=== PATIENT | male | born 1995 | race Caucasian/White ===

== ENCOUNTER 2017-02-15 19:13 | Emergency (ER) | payer OTHER ==
[~2017-02-15] VITALS: Ht 185.4 cm; Wt 87.9 kg
[2017-02-15 19:18] VITALS: BP 113/70; PULSE 74; TEMP 37.2; O2SAT 96; Ht 185.4 cm; Wt 87.9 kg
[2017-02-15] MEDS ORDERED: PROPARACAINE HCL 0.5% OP SOLN 15 ML BTL OP STA (19:31)
--- NOTE | 2017-02-15 20:27 | EMERGENCY ROOM VISIT NOTE ---
ED Visit Note First contact with patient: 19:24 CHIEF COMPLAINT: Eye pain HISTORY OF PRESENT ILLNESS: This 21-year-old male patient presents to the emergency department ambulatory complaining of pain in the right eye which began when he woke up from a nap today. The patient believes he may have scratched his eye during his sleep. There has been a constant moderate pain and irritation, redness and tearing in the eye. There is a mild blurring of vision at times and light bothers the eye. The vision has not been decreased over all. The patient does not wear contacts. The patient rates the pain as stinging and 3/10. The patient has not had previous injuries to this eye. Tetanus shot is up to date. REVIEW OF SYSTEMS: A 6 system review of systems was completed with positives and pertinent negatives listed in the HPI. ALLERGIES: No known drug allergies MEDICATIONS: No chronic medications PMH: No significant past medical history. SOCIAL HISTORY: The patient is a [employer] student and lives with roommates. Nonsmoker, denies alcohol use. PHYSICAL EXAM: Vital Signs: Reviewed Nurse's notes, vital signs stable. Visual acuity 20/40 right eye, 20/25 left eye without correction. GENERAL: This is a 21-year-old male, in no acute distress, but who is uncomfortable from the eye problem. Well-developed well-nourished. EYES: The pupils are equal round and reactive to light and accommodation. EOMs are full and without tenderness. There is discharge of clear tears from the right eye which is injected. There is no foreign body visible under the eyelid even after lid eversion. Funduscopic exam reveals no hemorrhages, papilledema, or other abnormalities. No foreign body was seen embedded in the cornea under slit lamp exam. The cornea was clear and no hyphema was seen. Fluorescein uptake was observed with ultraviolet light significant for a small corneal abrasion at 12:00. EMERGENCY DEPARTMENT COURSE: I examined the patient. Alcaine 2 drops were placed in the patient's right eye. A slit lamp exam was performed as above. Ciloxan two drops was placed in the patient's right eye. The patient was discharged home in good condition. DIAGNOSIS: Corneal abrasion of the right eye Problem List Medical Problems: (1) H/O ACL reconstruction Status: Chronic Current/Historical Medications No Active Prescriptions or Reported Meds Allergies Coded Allergies: No Known Allergies (Unverified , 01/15/16) Vital Signs Date Time Temp Pulse Resp B/P Pulse Ox O2 Delivery O2 Flow Rate FiO2 02/15/17 19:18 37.2 74 16 113/70 96 Room Air Medications Administered Medications (Trade) Dose Ordered Sig/Coty Route Start Time Stop Time Status Last Admin Dose Admin Ciprofloxacin HCl (Ciprofloxacin 0.3% Op Soln) 2 drops Q4H ONCE OP 02/15/17 20:30 02/15/17 20:31 DC 02/15/17 20:47 2 DROPS Departure Information Dispostion Home / Self-Care Condition GOOD Prescriptions No Active Prescriptions or Reported Meds Referrals [facility] (PCP) Patient Instructions My [facility] Additional Instructions You have been treated in the Emergency Department today for your Corneal Abrasion. You have been prescribed Ciloxan eye drops. This is an antibiotic which will help to prevent an infection from developing in your affected eye. You should use 2 drops in the affected eye every 2 hours while awake for the first 2 days, then every 4 hours for the remaining 5 days. This is a total of a 7-day course for these antibiotic eye drops. For pain control, you can use the following askv-ity-pdpefot medicines (if >12 yo): - Regular strength (325mg/tab) Tylenol (acetaminophen) 2 tabs every 4-6 hours as needed. Do not exceed 12 tablets in a 24 hour period. Avoid taking more than 4 grams (4000 mg) of Tylenol per day. This includes any other sources of acetaminophen you may take on a regular basis. - Regular strength (200 mg/tab) Advil (ibuprofen) 1-2 tabs every 4-6 hours as needed. Do not exceed a dose of 3200 mg per day. You should relax in a quiet, dark place for the rest of the day. You should wear sunglasses while outside for the next few days until your eyes are not as sensitive to the light. You should schedule a follow-up appointment in 2-3 days with your Primary Care Provider or established Eye Doctor (Deputy Sheriff Lieutenant) for further evaluation and treatment of your Corneal Abrasion. Return to the Emergency Department if your current symptoms worsen despite treatment course outlined above, or if you develop any of the following symptoms : intractable pain, visual disturbances, loss of vision, increased redness, swelling, drainage, or if you develop a fever.
[2017-02-15] MEDS ORDERED: CIPROFLOXACIN HCL 0.3% OP SOLN 2.5 ML BTL OP ONE (20:30)
== END 2017-02-15 20:48 | disposition home or self-care (01) ==
LOC: C.EDB 19:14 → C.EDD 20:48
DX: S05.01XA Injury of conjunctiva and corneal abrasion without foreign body, right eye, initial encounter (principal); X58.XXXA Exposure to other specified factors, initial encounter

== ENCOUNTER 2017-03-12 14:22 | Emergency (ER) | payer OTHER ==
[~2017-03-12] VITALS: Ht 185.4 cm; Wt 84.4 kg
[2017-03-12 14:27] VITALS: BP 137/67; PULSE 78; TEMP 36.5; O2SAT 99; Ht 185.4 cm; Wt 84.4 kg
[2017-03-12] MEDS ORDERED: IBUPROFEN 600 MG TAB PO STA (14:46)
--- NOTE | 2017-03-12 15:15 | DIAGNOSTIC IMAGING REPORT ---
LEFT KNEE 3 VIEWS CLINICAL HISTORY: Left knee pain status post trauma COMPARISON: None. DISCUSSION: There are postsurgical changes of prior ACL repairs. No acute fractures are visualized. There is a small supra patellar joint effusion. IMPRESSION: 1. No acute fractures 2. Postsurgical changes 3. Small joint effusion Electronically signed by: Miguel Barillas M.D. 03/12/2017 3:13 PM Dictated Date/Time: 03/12/2017 3:12 PM
[2017-03-12] MEDS ORDERED: TRAM-10 PO (16:01)
--- NOTE | 2017-03-12 16:07 | EMERGENCY ROOM VISIT NOTE ---
History First contact with patient: 14:39 Chief Complaint: KNEEPAIN Stated Complaint: LEFT KNEE PAIN-CAN'T WALK History of Present Illness The patient is a 22 year old male who presents to the Emergency Room with complaints of a left knee injury while playing dodgeball last night. The patient does not know the exact mechanism of injury, but does report abrupt onset of left knee pain that has persisted. The patient now rates his discomfort a 7 out of 10 with weightbearing. He reports a prior history of anterior cruciate ligament injury 3 with his first 2 injuries requiring anterior cruciate ligament reconstruction. His last injury was a partial anterior cruciate ligament tear with nonsurgical management. The patient does have several anterior cruciate ligament braces and crutches at home in [facility]. He currently denies any gross instability, clicking or locking of the knee. He complains of primarily anterior knee discomfort. He denies any pain radiating into the leg or thigh. Denies paresthesias or numbness of the left lower extremity. Review of Systems 10 system review was performed and was negative except for pertinent positives and negatives as indicated in history of present illness Past Medical/Surgical History Medical Problems: (1) H/O ACL reconstruction Family History Diabetes mellitus Social History Smoking Status: Never Smoker Alcohol Use: occasionally Marital Status: single Housing Status: lives with roommate Occupation Status: [employer] student Current/Historical Medications Scheduled PRN Tramadol (Ultram), 1-2 TAB PO Q4H PRN for Pain Allergies Coded Allergies: No Known Allergies (Unverified , 03/12/17) Physical Exam Vital Signs Date Time Temp Pulse Resp B/P Pulse Ox O2 Delivery O2 Flow Rate FiO2 03/12/17 14:27 36.5 78 18 137/67 99 Room Air Physical Exam CONSTITUTIONAL: Healthy and well nourished. Alert and oriented X 3 with positive affect. Patient does not appear in any acute distress. HEENT: Normocephalic, atraumatic. Pupils equal, round and reactive. NECK: Full active range of motion without discomfort. RESPIRATORY: Clear to auscultation bilaterally with no wheezing, crackles, rhonchi or stridor. CARDIOVASCULAR: Regular rate and rhythm with no murmurs, rubs or gallops. MUSCULOSKELETAL: Examination of the left knee shows a mild joint effusion. He has mild tenderness over the anteromedial joint line. Collateral ligaments are intact. Patient has a mild anterior draw with solid endpoint. No popliteal masses or tenderness to palpation of the hamstrings. Pedal pulses are intact. The patient otherwise exhibits full active range of motion with minimal discomfort. INTEGUMENTARY: No rash or other significant dermatologic conditions noted. NEUROLOGIC: No focal neurologic deficits noted. Medical Decision & Procedures ER Provider Diagnostic Interpretation: My interpretation of left knee x-rays does not show any avulsions, dislocation or fractures. Radiologist report is as follows: LEFT KNEE 3 VIEWS CLINICAL HISTORY: Left knee pain status post trauma COMPARISON: None. DISCUSSION: There are postsurgical changes of prior ACL repairs. No acute fractures are visualized. There is a small supra patellar joint effusion. IMPRESSION: 1. No acute fractures 2. Postsurgical changes 3. Small joint effusion Medications Administered Medications (Trade) Dose Ordered Sig/Coty Route Start Time Stop Time Status Last Admin Dose Admin Ibuprofen (Motrin Tab) 600 mg NOW STAT PO 03/12/17 14:46 03/12/17 14:48 DC 03/12/17 14:57 600 MG ED Course Patient history and physical exam were performed. Nurse's notes were reviewed. The patient was administered ibuprofen 600 mg as he has not taken anything today for the pain. An ice pack was also applied. X-rays of the left knee were normal. The patient was dispensed crutches and instructed to remain partial weightbearing as tolerated. The patient was given copies of his x-rays, and instructed to follow-up with his orthopedic surgeon upon return home in 2 weeks. Ice and elevation for swelling. Ibuprofen and Tylenol in alternating fashion as needed for additional pain relief. The patient was also provided a prescription for Ultram as needed for breakthrough pain. The patient also requested that I speak with his father as well. The father also voiced understanding of physical exam findings and x-ray findings. He did request that we refer the patient to a local orthopedic surgeon for reassessment. The patient was provided contact information for [facility]. The patient was happy with plan of care, and rated his discomfort a 4 out of 10 at the time of discharge. Impression Primary Impression: Injury of left knee Additional Impression: History of reconstruction of anterior cruciate ligament tear Departure Information Dispostion Home / Self-Care Prescriptions Tramadol (Ultram) 50 Mg Tab 1-2 TAB PO Q4H Y for Pain, #20 TAB For Initial Treatment Prov: Lalito Amezquita PA 03/12/17 Forms HOME CARE DOCUMENTATION FORM, IMPORTANT VISIT INFORMATION Patient Instructions [facility] Additional Instructions Ice and elevate knee for swelling and pain. Wear knee immobilizer when up and about. Use crutches - minimal weight on foot. Ibuprofen 800 mg and/or Tylenol 1000 mg every 8 hours. You may also alternate these medications for more effective pain relief: Ibuprofen --4 HRS--> Tylenol --4 HRS--> ibuprofen --4 HRS--> Tylenol .... Follow-up with your orthopedic surgeon for further reevaluation and treatment. Problem Qualifiers Primary Impression: Injury of left knee Encounter type: initial encounter Qualified Codes: S89.92XA - Unspecified injury of left lower leg, initial encounter
== END 2017-03-12 16:28 | disposition home or self-care (01) ==
LOC: C.EDB 14:25 → C.EDD 16:28
DX: S89.92XA Unspecified injury of left lower leg, initial encounter (principal); X58.XXXA Exposure to other specified factors, initial encounter; Y93.6A Activity, physical games generally associated with school recess, summer camp and children; M25.462 Effusion, left knee; Z83.3 Family history of diabetes mellitus